=== PATIENT | female | born 1985 | race Caucasian/White ===

== ENCOUNTER 2016-06-28 17:49 | Emergency (ER) | payer OTHER ==
[~2016-06-28] VITALS: Ht 154.9 cm; Wt 45.8 kg
[~2016-06-28 17:49] MED LIST: ALBUTEROL0.09 MG/A2 IH; BLEPH-10 15 ML15 ML OP; MEDROL DOSEPAK4 MG PO; MOTRIN600 MG PO; NKHM; Nystatin Cream15 GM T; ZITHROMAX Z PA250 MG PO
== END 2016-06-28 20:23 | disposition home or self-care (01) ==
LOC: ED 17:49
DX: G43.909 Migraine, unspecified, not intractable, without status migrainosus (principal); R03.0 Elevated blood-pressure reading, without diagnosis of hypertension

== ENCOUNTER 2022-09-10 21:16 | Emergency (ER) | payer OTHER | END 2022-09-10 22:48 | disposition left against medical advice (07) | LOC: ED 21:16 | DX: T14.8XXA Other injury of unspecified body region, initial encounter (principal); Z53.21 Procedure and treatment not carried out due to patient leaving prior to being seen by health care provider; W54.0XXA Bitten by dog, initial encounter; Y93.89 Activity, other specified; Y92.89 Other specified places as the place of occurrence of the external cause; Y99.8 Other external cause status ==